=== PATIENT | female | born 1940 | race Caucasian/White ===

== ENCOUNTER 2018-04-16 09:17 | Outpatient (CLI) | payer MEDICARE, OTHER ==
--- NOTE | 2018-04-16 11:20 | BD ---
DEXA BONE DENSITY STUDY: Date: 04/16/18 HISTORY: Osteoporosis screening postmenopausal. COMPARISON: None. FINDINGS: Lumbar Spine: BMD (g/cm2) L1 0.760 T-Score: -2.1 Z-Score: 0.1 L2 0.841 T-Score: -1.7 Z-Score: 0.8 L3 0.821 T-Score: -2.4 Z-Score: 0.2 L4 0.852 T-Score: -1.9 Z-Score: 0.8 L1-L4 0.820 T-Score: -2.1 Z-Score: 0.5 WHO Classification: Osteopenia. Femoral Neck: 0.579 T-Score: -2.4 Z-Score: -0.3 Total Femur: 0.845 T-Score: -0.8 Z-Score: 1.1 WHO Classification: Osteopenia. 10 YEAR FRACTURE RISK: Major osteoporotic fracture: 15% Hip fracture: 4.5% IMPRESSION: Osteopenia with fracture risk as above. POS: [facility]
== END 2018-04-16 09:18 | disposition home or self-care (01) ==
LOC: BICMAMMO 09:17
PROVIDERS: ATTEND Family Medicine
DX: M81.0 Age-related osteoporosis without current pathological fracture (principal); M85.88 Other specified disorders of bone density and structure, other site
CPT/HCPCS: 77080